=== PATIENT | female | born 1955 | race Caucasian/White ===

== ENCOUNTER → 2017-01-29 | Outpatient (CLI) | payer MEDICARE, MEDICAID | LOC: ORTHO 02:49 | DX: M19.012 Primary osteoarthritis, left shoulder (principal); M89.9 Disorder of bone, unspecified ==

== ENCOUNTER → 2017-02-02 | Outpatient (CLI) | payer MEDICARE, MEDICAID | END | disposition home or self-care (01) | LOC: MRI 10:40 | DX: M19.012 Primary osteoarthritis, left shoulder (principal); M25.412 Effusion, left shoulder ==